=== PATIENT | male | born 1960 | race Caucasian/White ===

== ENCOUNTER → 2017-05-14 | Outpatient (REF) | payer OTHER ==
[2017-05-14 13:47] LABS: ALBUMIN/GLOBULIN RATIO 1.33 (1.00-1.93); ALKALINE PHOSPHATASE 86 U/L (45-117); ALT/SGPT 44 U/L (12-78); ANION GAP 8 MEQ/L (8-16); AST/SGOT 22 U/L (15-37); BILIRUBIN,TOTAL 0.5 MG/DL (0.2-1.0); BLOOD UREA NITROGEN 12 MG/DL (7-18); CALCIUM LEVEL 9.2 MG/DL (8.5-10.1); CARBON DIOXIDE LEVEL 26 MEQ/L (21-32); CHLORIDE LEVEL 109 MEQ/L (98-107); CHOLESTEROL LEVEL 187 MG/DL (<200); GLOMERULAR FILTRATION RATE > 60.0 (>56); GLUCOSE, FASTING 91 MG/DL (70-105); POTASSIUM SERUM 4.4 MEQ/L (3.5-5.1); SODIUM LEVEL 143 MEQ/L (136-145); TRIGLYCERIDES LEVEL 233 MG/DL (<150)
== END ==
LOC: M SFHCPLAZ 09:54
PROVIDERS: ATTEND Internal Medicine
DX: E78.00 Pure hypercholesterolemia, unspecified (principal)

== ENCOUNTER → 2017-06-23 | Outpatient (CLI) | payer OTHER ==
--- NOTE | 2017-06-23 09:22 | REP ---
LOW DOSE LUNG SCREENING CT: A low dose CT screening exam of the lungs is obtained without IV contrast. There is an azygos lobe. There is minor scattered fibrotic changes in both lungs diffusely. No suspicious nodular opacities are seen. No consolidation or other confluent parenchymal opacities are seen. No gross mediastinal contour abnormality is seen. The heart does not appear to be enlarged. There is no evidence of pleural fluid. IMPRESSION: No suspicious nodules. Routine yearly screening followup is recommended. Signed by Mustapha Ervin MD 06/23/2017 09:42 A
== END ==
LOC: M RAD 08:38
PROVIDERS: ATTEND Internal Medicine
DX: F17.200 Nicotine dependence, unspecified, uncomplicated (principal)

== ENCOUNTER → 2018-03-22 | Outpatient (CLI) | payer OTHER | LOC: M SLEEP 19:24 | DX: G47.33 Obstructive sleep apnea (adult) (pediatric) (principal); G47.61 Periodic limb movement disorder | CPT/HCPCS: 95810 ==

== ENCOUNTER → 2018-04-28 | Outpatient (CLI) | payer OTHER | LOC: M SLEEP 19:32 | DX: G47.33 Obstructive sleep apnea (adult) (pediatric) (principal) | CPT/HCPCS: 95811 ==

== ENCOUNTER → 2018-05-23 | Outpatient (REF) | payer OTHER ==
[2018-05-23 12:52] LABS: ALBUMIN 3.9 GM/DL (3.2-5.2); ALKALINE PHOSPHATASE 82 U/L (45-117); ALT/SGPT 53 U/L (12-78); ANION GAP 7 MEQ/L (8-16); AST/SGOT 26 U/L (7-37); BILIRUBIN,TOTAL 0.4 MG/DL (0.2-1.0); BLOOD UREA NITROGEN 16 MG/DL (7-18); CALCIUM LEVEL 8.8 MG/DL (8.8-10.2); CARBON DIOXIDE LEVEL 26 MEQ/L (21-32); CHLORIDE LEVEL 108 MEQ/L (98-107); CHOLESTEROL LEVEL 208 MG/DL (<200); CHOLESTEROL RISK RATIO 6.117 (<5); CREATININE FOR GFR 0.93 MG/DL (0.70-1.30); GLOMERULAR FILTRATION RATE > 60.0 (>49); GLUCOSE, FASTING 98 MG/DL (70-100); HDL CHOLESTEROL 34 MG/DL (>40); HEMATOCRIT 44.8 % (42.0-52.0); HEMOGLOBIN 15.6 g/dl (13.5-17.5); LDL CHOLESTEROL 138.6 MG/DL (<100); MEAN CORPUSCULAR HEMOGLOBIN 31.4 pg (27.0-33.0); MEAN CORPUSCULAR HGB CONC 34.8 g/dl (32.0-36.5); MEAN CORPUSCULAR VOLUME 90.1 fl (80.0-96.0); NON-HDL-C 174 MG/DL; PLATELET COUNT, AUTOMATED 250 10^3/uL (150-450); POTASSIUM SERUM 4.4 MEQ/L (3.5-5.1); RED BLOOD COUNT 4.97 10^6/uL (4.30-6.10); RED CELL DISTRIBUTION WIDTH 12.7 % (11.5-14.5); SODIUM LEVEL 141 MEQ/L (136-145); TOTAL PROTEIN 6.9 GM/DL (6.4-8.2); TRIGLYCERIDES LEVEL 177 MG/DL (<150); WHITE BLOOD COUNT 7.5 10^3/uL (4.0-10.0)
[2018-05-23 13:16] LABS: HEPATITIS C VIRUS ABY INDEX 0.5 INDEX (<0.8)
== END ==
LOC: M SFHCPLAZ 08:03
DX: E78.00 Pure hypercholesterolemia, unspecified (principal); F17.200 Nicotine dependence, unspecified, uncomplicated
CPT/HCPCS: 80053

== ENCOUNTER → 2019-02-22 | Outpatient (CLI) | payer OTHER ==
--- NOTE | 2019-02-22 15:24 | REP ---
Clinical: Lung screening. History of the contained mass Comparison: 06/23/2017 Technique: Axial low-dose noncontrast images from the thoracic inlet to the upper abdomen using lung screening technique. Findings: The lung maciel are well-aerated. No consolidation, significant nodule or mass lesion is appreciated. No pleural effusion/reaction or pneumothorax. Tracheobronchial tree is patent. Mediastinum demonstrates mild atherosclerotic changes of the coronary arteries without cardiomegaly. Impression: Lung-RADS category I. No nodule or suspicious abnormality. Recommendations include annual low-dose reevaluation/follow-up. Electronically Signed by Sathya Robins MD 02/22/2019 03:16 P
== END ==
LOC: M RAD 07:37
PROVIDERS: ATTEND Internal Medicine
DX: F17.200 Nicotine dependence, unspecified, uncomplicated (principal)

== ENCOUNTER → 2019-05-26 | Outpatient (REF) | payer OTHER ==
[2019-05-26 10:13] LABS: HEMATOCRIT 44.5 % (42.0-52.0); HEMOGLOBIN 15.2 g/dl (13.5-17.5); MEAN CORPUSCULAR HEMOGLOBIN 31.7 pg (27.0-33.0); MEAN CORPUSCULAR HGB CONC 34.2 g/dl (32.0-36.5); MEAN CORPUSCULAR VOLUME 92.7 fl (80.0-96.0); PLATELET COUNT, AUTOMATED 244 10^3/uL (150-450); WHITE BLOOD COUNT 4.5 10^3/uL (4.0-10.0)
[2019-05-26 10:21] LABS: ALBUMIN 3.8 GM/DL (3.2-5.2); ALT/SGPT 46 U/L (12-78); BILIRUBIN,TOTAL 0.7 MG/DL (0.2-1.0); BLOOD UREA NITROGEN 20 MG/DL (7-18); CALCIUM LEVEL 9.3 MG/DL (8.8-10.2); CARBON DIOXIDE LEVEL 25 MEQ/L (21-32); CHLORIDE LEVEL 107 MEQ/L (98-107); CHOLESTEROL LEVEL 189 MG/DL (<200); CHOLESTEROL RISK RATIO 5.108 (<5); CREATININE FOR GFR 0.89 MG/DL (0.70-1.30); GLOMERULAR FILTRATION RATE > 60.0 (>49); GLUCOSE, FASTING 101 MG/DL (70-100); HDL CHOLESTEROL 37 MG/DL (>40); LDL CHOLESTEROL 133 MG/DL (<100); NON-HDL-C 152 MG/DL; POTASSIUM SERUM 4.2 MEQ/L (3.5-5.1); SODIUM LEVEL 139 MEQ/L (136-145); TOTAL PROTEIN 7.2 GM/DL (6.4-8.2); TRIGLYCERIDES LEVEL 97 MG/DL (<150)
== END ==
LOC: M SFHCPLAZ 08:08
PROVIDERS: ATTEND Internal Medicine
DX: Z00.00 Encounter for general adult medical examination without abnormal findings (principal); E78.00 Pure hypercholesterolemia, unspecified; G47.33 Obstructive sleep apnea (adult) (pediatric)

== ENCOUNTER → 2019-06-08 | Outpatient (CLI) | payer OTHER ==
--- NOTE | 2019-06-08 08:21 | REP ---
Clinical: Screening for abdominal aortic aneurysm. Technique: Real time cash scale ultrasound examination using curved array transducer. Findings: Abdominal aorta demonstrates mild atheromatous plaquing without evidence for aneurysm. No periaortic fluid collections are identified. Proximal aorta Poorly evaluated due to bowel gas. Mid aorta (renal artery level) 2.5 x 2.7 cm. Mid aorta 2.6 x 2.7 cm. Distal aorta 2.4 x 2.7 cm. Right common iliac artery 1.0 cm maximal diameter. Left common iliac artery 1.0 cm maximal diameter. Impression: Age related atheromatous changes without evidence for abdominal aortic aneurysm. Electronically Signed by Sathya Robins MD 06/08/2019 08:12 A
== END ==
LOC: M RAD 07:31
PROVIDERS: ATTEND Internal Medicine
DX: Z82.49 Family history of ischemic heart disease and other diseases of the circulatory system (principal)

== ENCOUNTER → 2019-08-14 | Outpatient (CLI) | payer OTHER ==
--- NOTE | 2019-08-14 15:08 | REP ---
Four views left hand: 08/14/2019. Indication: Left hand pain. Comparison: None. Findings: There is no acute fracture, subluxation or dislocation. Mild osteoarthritic changes of the PIP joints, particularly distally are noted. No erosive changes are present. No significant soft tissue abnormalities are detected. Impression: No acute osseous injury. No definite evidence of ischemic changes. Electronically Signed by Jack Henley DO 08/14/2019 02:59 P
== END ==
LOC: M RAD 14:23
PROVIDERS: ATTEND Family Medicine
DX: I99.8 Other disorder of circulatory system (principal)

== ENCOUNTER 2019-12-11 07:26 | Day surgery (SDC) | payer OTHER ==
[~2019-12-11] VITALS: Ht 182.9 cm; Wt 128.8 kg
[~2019-12-11 07:26] MED LIST: MAGN250T7 PO; MELO15TA28 PO; NS 1,000 ML IV ONE
[2019-12-11] MEDS ORDERED: LIDOCAINE 2% INJ 100 MG/5 ML SDV (FOR ANES.) As Ordered ONE (07:40)
[2019-12-11] MEDS ORDERED: propofoL 200 MG/20 ML VIAL As Ordered ONE ×2 (07:40→09:35)
--- NOTE | 2019-12-11 09:43 | ROOR ---
Patient Name: Yong Banda Procedure Date: 12/11/2019 9:19 AM Date of : 1960 Age: 59 Room: [facility] Gender: Male Note Status: Finalized Procedure: Colonoscopy Indications: High risk colon cancer surveillance: Personal history of colonic polyps, Last colonoscopy: September 2016 Providers: Kilo LUND MD Referring MD: Justino Meza MD Requesting Provider: Medicines: Monitored Anesthesia Care Complications: No immediate complications. Procedure: Pre-Anesthesia Assessment: - The heart rate, respiratory rate, oxygen saturations, blood pressure, adequacy of pulmonary ventilation, and response to care were monitored throughout the procedure. The Colonoscope was introduced through the anus and advanced to the cecum, identified by appendiceal orifice and ileocecal valve. The colonoscopy was performed without difficulty. The patient tolerated the procedure well. The quality of the bowel preparation was good. Findings: The perianal and digital rectal examinations were normal. A 5 mm polyp was found in the splenic flexure. The polyp was sessile. The polyp was removed with a cold snare. Resection and retrieval were complete. Multiple medium-mouthed diverticula were found in the sigmoid colon. Arlene-diverticular erythema was seen. This was biopsied with a cold forceps for histology. Small Internal Hemorrhoids. Impression: - One 5 mm polyp at the splenic flexure, removed with a cold snare. Resected and retrieved. - Diverticulosis in the sigmoid colon. Arlene-diverticular erythema/irregular mucosal fold around one diverticulum was seen. Biopsied. - Small Internal Hemorrhoids. - The examination was otherwise normal on direct and retroflexion views. Recommendation: - Repeat colonoscopy in 5 years for surveillance. Kilo Lund MD Kilo LUND MD 12/11/2019 9:42:38 AM Electronically signed by Kilo LUND MD Number of Addenda: 0 Note Initiated On: 12/11/2019 9:19 AM Estimated Blood Loss: Estimated blood loss: none.
[2019-12-11 10:00] VITALS: BP 142/89
== END 2019-12-11 10:05 | disposition home or self-care (01) ==
LOC: M OPP 07:26
PROVIDERS: ATTEND Internal Medicine Gastroenterology
DX: Z86.010 Personal history of colon polyps (principal); D12.3 Benign neoplasm of transverse colon; K57.30 Diverticulosis of large intestine without perforation or abscess without bleeding; K64.8 Other hemorrhoids; G47.33 Obstructive sleep apnea (adult) (pediatric); I73.00 Raynaud's syndrome without gangrene; M19.90 Unspecified osteoarthritis, unspecified site; F17.210 Nicotine dependence, cigarettes, uncomplicated; Z79.899 Other long term (current) drug therapy

== ENCOUNTER → 2020-06-03 | Outpatient (CLI) | payer OTHER ==
[~2020-06-03] MED LIST changes: -NS 1,000 ML IV ONE
[2020-06-03 12:50] LABS: HEMATOCRIT 44.5 % (42.0-52.0); HEMOGLOBIN 15.1 g/dl (13.5-17.5); MEAN CORPUSCULAR HEMOGLOBIN 31.3 pg (27.0-33.0); MEAN CORPUSCULAR HGB CONC 33.9 g/dl (32.0-36.5); MEAN CORPUSCULAR VOLUME 92.1 fl (80.0-96.0); PLATELET COUNT, AUTOMATED 295 10^3/uL (150-450); RED BLOOD COUNT 4.83 10^6/uL (4.30-6.10); WHITE BLOOD COUNT 6.1 10^3/uL (4.0-10.0)
[2020-06-03 13:26] LABS: ALBUMIN 3.6 GM/DL (3.2-5.2); ALT/SGPT 44 U/L (12-78); BILIRUBIN,TOTAL 0.3 MG/DL (0.2-1.0); BLOOD UREA NITROGEN 13 MG/DL (7-18); CALCIUM LEVEL 8.9 MG/DL (8.8-10.2); CARBON DIOXIDE LEVEL 29 MEQ/L (21-32); CHLORIDE LEVEL 107 MEQ/L (98-107); CHOLESTEROL LEVEL 172 MG/DL (<200); CHOLESTEROL RISK RATIO 5.212 (<5); CREATININE FOR GFR 0.92 MG/DL (0.70-1.30); GLOMERULAR FILTRATION RATE > 60.0 (>49); GLUCOSE, FASTING 97 MG/DL (70-100); HDL CHOLESTEROL 33 MG/DL (>40); LDL CHOLESTEROL 118 MG/DL (<100); NON-HDL-C 139 MG/DL; POTASSIUM SERUM 4.8 MEQ/L (3.5-5.1); SODIUM LEVEL 141 MEQ/L (136-145); TOTAL PROTEIN 6.9 GM/DL (6.4-8.2); TRIGLYCERIDES LEVEL 103 MG/DL (<150)
[2020-06-03 13:27] LABS: VITAMIN B12 LEVEL 700 PG/ML (247-911)
== END ==
LOC: M PLALAB 10:10
PROVIDERS: ATTEND Internal Medicine
DX: Z00.00 Encounter for general adult medical examination without abnormal findings (principal); E78.00 Pure hypercholesterolemia, unspecified; Z12.5 Encounter for screening for malignant neoplasm of prostate; Z86.010 Personal history of colon polyps; G47.33 Obstructive sleep apnea (adult) (pediatric); R53.83 Other fatigue
CPT/HCPCS: 36415; 80053; 80061; 82607; 84443; 85027; G0103

== ENCOUNTER → 2020-08-23 | Outpatient (CLI) | payer OTHER ==
--- NOTE | 2020-08-23 19:58 | REP ---
INDICATION: SMOKER COMPARISON: None. TECHNIQUE: Axial noncontrast images from the thoracic inlet to the upper abdomen using low-dose lung screening technique (LDCT). FINDINGS: Bilateral lung maciel demonstrate scattered age-related changes. No suspicious nodule or mass lesion. No consolidation. No effusion. No pneumothorax. Tracheobronchial tree is patent. Atherosclerotic changes to the thoracic aorta and coronary arteries noted. There is suggestions for a lipoma in the left axillary region. IMPRESSION: 1. Lung rads category 1. No suspicious nodule or mass lesion. Management recommendations include annual low-dose surveillance. 2. Suspected lipoma within the left axillary region. <Electronically signed by Sathya Robins > 08/23/201954
== END ==
LOC: M RAD 10:49
PROVIDERS: ATTEND Internal Medicine
DX: F17.200 Nicotine dependence, unspecified, uncomplicated (principal); R91.8 Other nonspecific abnormal finding of lung field

== ENCOUNTER → 2021-06-06 | Outpatient (CLI) | payer OTHER ==
[2021-06-06 13:11] LABS: BASO % 0.1 % (0.0-1.0); EOS % 0.1 % (0.0-3.0); HEMATOCRIT 44.4 % (42.0-52.0); LYMPH % 7.7 % (24.0-44.0); MEAN CORPUSCULAR HEMOGLOBIN 30.7 pg (27.0-33.0); MEAN CORPUSCULAR HGB CONC 33.8 g/dl (32.0-36.5); MEAN CORPUSCULAR VOLUME 90.8 fl (80.0-96.0); MONO # 0.6 10^3/uL (0.0-0.8); MONO % 4.6 % (2.0-8.0); NEUTROPHILS # 11.4 10^3/uL (1.5-8.5); NEUTROPHILS % 86.6 % (36.0-66.0); PLATELET COUNT, AUTOMATED 324 10^3/uL (150-450); RED BLOOD COUNT 4.89 10^6/uL (4.30-6.10); WHITE BLOOD COUNT 13.2 10^3/uL (4.0-10.0)
[2021-06-06 13:33] LABS: ALBUMIN 3.8 GM/DL (3.2-5.2); ALT/SGPT 44 U/L (12-78); BILIRUBIN,TOTAL 0.3 MG/DL (0.2-1.0); BLOOD UREA NITROGEN 15 MG/DL (7-18); CALCIUM LEVEL 9.6 MG/DL (8.8-10.2); CARBON DIOXIDE LEVEL 26 MEQ/L (21-32); CHLORIDE LEVEL 108 MEQ/L (98-107); CHOLESTEROL LEVEL 211 MG/DL (<200); CHOLESTEROL RISK RATIO 5.146 (<5); CREATININE FOR GFR 0.83 MG/DL (0.70-1.30); GLOMERULAR FILTRATION RATE > 60.0 (>49); GLUCOSE, FASTING 128 MG/DL (70-100); HDL CHOLESTEROL 41 MG/DL (>40); LDL CHOLESTEROL 154 MG/DL (<100); NON-HDL-C 170 MG/DL; POTASSIUM SERUM 4.6 MEQ/L (3.5-5.1); SODIUM LEVEL 141 MEQ/L (136-145); TOTAL PROTEIN 7.2 GM/DL (6.4-8.2); TRIGLYCERIDES LEVEL 79 MG/DL (<150)
== END ==
LOC: M PLALAB 08:36
PROVIDERS: ATTEND Internal Medicine
DX: Z00.00 Encounter for general adult medical examination without abnormal findings (principal); E78.00 Pure hypercholesterolemia, unspecified; G47.33 Obstructive sleep apnea (adult) (pediatric); Z12.5 Encounter for screening for malignant neoplasm of prostate
CPT/HCPCS: 36415; 80053; 80061; 85025; G0103

== ENCOUNTER → 2021-12-08 | Outpatient (CLI) | payer OTHER ==
[2021-12-08 10:22] LABS: HEMOGLOBIN A1c 5.9 %
[2021-12-08 10:34] LABS: ALT/SGPT 50 U/L (12-78); BILIRUBIN,TOTAL 0.5 MG/DL (0.2-1.0); BLOOD UREA NITROGEN 19 MG/DL (7-18); CALCIUM LEVEL 9.4 MG/DL (8.8-10.2); CARBON DIOXIDE LEVEL 28 MEQ/L (21-32); CHLORIDE LEVEL 109 MEQ/L (98-107); CHOLESTEROL LEVEL 199 MG/DL (<200); CHOLESTEROL RISK RATIO 5.236 (<5); CREATININE FOR GFR 0.82 MG/DL (0.70-1.30); GLOMERULAR FILTRATION RATE > 60.0 (>49); GLUCOSE, FASTING 108 MG/DL (70-100); HDL CHOLESTEROL 38 MG/DL (>40); LDL CHOLESTEROL 132 MG/DL (<100); NON-HDL-C 161 MG/DL; POTASSIUM SERUM 4.4 MEQ/L (3.5-5.1); SODIUM LEVEL 140 MEQ/L (136-145); TOTAL PROTEIN 7.2 GM/DL (6.4-8.2); TRIGLYCERIDES LEVEL 146 MG/DL (<150)
[2021-12-08 11:47] LABS: CREATININE, URINE 91.2 MG/DL; MALB URINE SIEMENS < 5.0 MG/L; MAU/CREAT RATIO 5.4 MCG/MG (0.0-30.0)
== END ==
LOC: M PLALAB 08:11
PROVIDERS: ATTEND Internal Medicine
DX: E78.00 Pure hypercholesterolemia, unspecified (principal)

== ENCOUNTER → 2022-04-07 | Outpatient (CLI) | payer OTHER | LOC: M RAD 08:59 | PROVIDERS: ATTEND Internal Medicine | DX: R91.1 Solitary pulmonary nodule (principal) ==

== ENCOUNTER → 2022-06-15 | Outpatient (CLI) | payer OTHER ==
[2022-06-15 10:29] LABS: BASO # 0.1 10^3/uL (0.0-0.2); BASO % 0.6 % (0.0-1.0); EOS # 0.2 10^3/uL (0.0-0.5); EOS % 2.5 % (0.0-3.0); HEMATOCRIT 46.7 % (42.0-52.0); HEMOGLOBIN 15.9 g/dl (13.5-17.5); LYMPH # 1.2 10^3/uL (1.5-5.0); LYMPH % 13.9 % (24.0-44.0); MEAN CORPUSCULAR HEMOGLOBIN 30.8 pg (27.0-33.0); MEAN CORPUSCULAR VOLUME 90.5 fl (80.0-96.0); MONO # 0.5 10^3/uL (0.0-0.8); MONO % 5.8 % (2.0-8.0); NEUTROPHILS # 6.5 10^3/uL (1.5-8.5); NEUTROPHILS % 76.8 % (36.0-66.0); PLATELET COUNT, AUTOMATED 274 10^3/uL (150-450); RED BLOOD COUNT 5.16 10^6/uL (4.30-6.10); WHITE BLOOD COUNT 8.4 10^3/uL (4.0-10.0)
[2022-06-15 11:17] LABS: ALT/SGPT 43 U/L (12-78); BILIRUBIN,TOTAL 0.5 MG/DL (0.2-1.0); BLOOD UREA NITROGEN 18 MG/DL (7-18); CALCIUM LEVEL 9.7 MG/DL (8.8-10.2); CARBON DIOXIDE LEVEL 24 MEQ/L (21-32); CHLORIDE LEVEL 108 MEQ/L (98-107); CHOLESTEROL LEVEL 203 MG/DL (<200); CHOLESTEROL RISK RATIO 5.205 (<5); CREATININE FOR GFR 0.88 MG/DL (0.70-1.30); GLOMERULAR FILTRATION RATE > 60.0 (>49); GLUCOSE, FASTING 108 MG/DL (70-100); HDL CHOLESTEROL 39 MG/DL (>40); LDL CHOLESTEROL 135 MG/DL (<100); NON-HDL-C 164 MG/DL; POTASSIUM SERUM 4.4 MEQ/L (3.5-5.1); SODIUM LEVEL 137 MEQ/L (136-145); TRIGLYCERIDES LEVEL 147 MG/DL (<150)
[2022-06-15 15:34] LABS: HEMOGLOBIN A1c 5.7 %
== END ==
LOC: M PLALAB 08:07
PROVIDERS: ATTEND Internal Medicine
DX: E78.00 Pure hypercholesterolemia, unspecified (principal)

== ENCOUNTER → 2022-10-08 | Outpatient (CLI) | payer OTHER | LOC: M PLAIMG 09:50 | PROVIDERS: ATTEND Nurse Practitioner Adult Health | DX: R91.8 Other nonspecific abnormal finding of lung field (principal) ==

== ENCOUNTER → 2022-12-21 | Outpatient (CLI) | payer OTHER ==
[2022-12-21 13:23] LABS: HEMOGLOBIN A1c 5.7 % (4.0-6.0)
[2022-12-21 13:31] LABS: ALBUMIN 4.2 G/DL (3.2-5.2); ALKALINE PHOSPHATASE 102 U/L (46-116); ALT/SGPT 53 U/L (7.0-40); AST/SGOT 28 U/L (<34); BILIRUBIN,TOTAL 0.7 MG/DL (0.3-1.2); BLOOD UREA NITROGEN 18 MG/DL (9-23); CALCIUM LEVEL 8.7 MG/DL (8.3-10.6); CARBON DIOXIDE LEVEL 27 MMOL/L (20-31); CHLORIDE LEVEL 105 MMOL/L (98-107); CHOLESTEROL LEVEL 152 MG/DL (<200); CHOLESTEROL RISK RATIO 3.41 (<5); CREATININE FOR GFR 0.86 MG/DL (0.70-1.30); GLOMERULAR FILTRATION RATE > 60.0 (>49); GLUCOSE, FASTING 122 MG/DL (74-106); HDL CHOLESTEROL 44.5 MG/DL (>40); LDL CHOLESTEROL 84.1 MG/DL (<100); NON-HDL-C 107.5 MG/DL; POTASSIUM SERUM 4.6 MMOL/L (3.5-5.1); SODIUM LEVEL 140 MMOL/L (136-145); TOTAL PROTEIN 7.2 G/DL (5.7-8.2); TRIGLYCERIDES LEVEL 117 MG/DL (<150)
== END ==
LOC: M WUC 09:21
PROVIDERS: ATTEND Nurse Practitioner Adult Health
DX: E78.00 Pure hypercholesterolemia, unspecified (principal); R73.09 Other abnormal glucose

== ENCOUNTER → 2023-06-21 | Outpatient (CLI) | payer MEDICARE, OTHER ==
[2023-06-21 13:32] LABS: HEMATOCRIT 43.3 % (42.0-52.0); HEMOGLOBIN 14.8 g/dl (13.5-17.5); MEAN CORPUSCULAR HEMOGLOBIN 30.9 pg (27.0-33.0); MEAN CORPUSCULAR HGB CONC 34.2 g/dl (32.0-36.5); MEAN CORPUSCULAR VOLUME 90.4 fl (80.0-96.0); PLATELET COUNT, AUTOMATED 259 10^3/uL (150-450); RED BLOOD COUNT 4.79 10^6/uL (4.30-6.10); WHITE BLOOD COUNT 5.8 10^3/uL (4.0-10.0)
[2023-06-21 13:37] LABS: HEMOGLOBIN A1c 5.2 % (4.0-6.0)
[2023-06-21 13:50] LABS: ALBUMIN 4.2 G/DL (3.2-5.2); ALKALINE PHOSPHATASE 111 U/L (46-116); ALT/SGPT 46 U/L (7.0-40); AST/SGOT 28 U/L (<34); BILIRUBIN,TOTAL 0.9 MG/DL (0.3-1.2); BLOOD UREA NITROGEN 15 MG/DL (9-23); CARBON DIOXIDE LEVEL 25 MMOL/L (20-31); CHLORIDE LEVEL 107 MMOL/L (98-107); CHOLESTEROL LEVEL 131 MG/DL (<200); CHOLESTEROL RISK RATIO 3.42 (<5); CREATININE FOR GFR 0.81 MG/DL (0.70-1.30); GLOMERULAR FILTRATION RATE > 60.0 (>49); GLUCOSE, FASTING 111 MG/DL (74-106); HDL CHOLESTEROL 38.2 MG/DL (>40); LDL CHOLESTEROL 75.8 MG/DL (<100); NON-HDL-C 92.8 MG/DL; POTASSIUM SERUM 4.1 MMOL/L (3.5-5.1); SODIUM LEVEL 141 MMOL/L (136-145); TOTAL PROTEIN 6.9 G/DL (5.7-8.2); TRIGLYCERIDES LEVEL 85 MG/DL (<150)
== END ==
LOC: M WUC 09:43
PROVIDERS: ATTEND Nurse Practitioner Adult Health
DX: G47.33 Obstructive sleep apnea (adult) (pediatric) (principal); R73.09 Other abnormal glucose; E78.00 Pure hypercholesterolemia, unspecified; Z12.5 Encounter for screening for malignant neoplasm of prostate
CPT/HCPCS: 36415; 80053; 80061; 83036; 84443; 85027; G0103

== ENCOUNTER → 2023-07-19 | Outpatient (CLI) | payer MEDICARE, OTHER | LOC: M RAD 06:23 | PROVIDERS: ATTEND Nurse Practitioner Adult Health | DX: Z00.00 Encounter for general adult medical examination without abnormal findings (principal); Z82.49 Family history of ischemic heart disease and other diseases of the circulatory system; M17.12 Unilateral primary osteoarthritis, left knee; E78.00 Pure hypercholesterolemia, unspecified; R91.1 Solitary pulmonary nodule; R73.09 Other abnormal glucose; Z23 Encounter for immunization; Z86.010 Personal history of colon polyps; G47.33 Obstructive sleep apnea (adult) (pediatric) ==

== ENCOUNTER → 2023-11-22 | Outpatient (CLI) | payer MEDICARE, OTHER | LOC: M RAD 06:06 | PROVIDERS: ATTEND Nurse Practitioner Adult Health | DX: Z87.891 Personal history of nicotine dependence (principal) ==

== ENCOUNTER → 2024-06-22 | Outpatient (CLI) | payer MEDICARE, OTHER ==
[2024-06-22 13:46] LABS: HEMATOCRIT 44.1 % (42.0-52.0); HEMOGLOBIN 15.2 g/dl (13.5-17.5); MEAN CORPUSCULAR HEMOGLOBIN 31.7 pg (27.0-33.0); MEAN CORPUSCULAR HGB CONC 34.5 g/dl (32.0-36.5); MEAN CORPUSCULAR VOLUME 92.1 fl (80.0-96.0); PLATELET COUNT, AUTOMATED 287 10^3/uL (150-450); RED BLOOD COUNT 4.79 10^6/uL (4.30-6.10); WHITE BLOOD COUNT 6.1 10^3/uL (4.0-10.0)
[2024-06-22 14:23] LABS: ALBUMIN 4.2 G/DL (3.2-5.2); ALKALINE PHOSPHATASE 96 U/L (46-116); ALT/SGPT 40 U/L (7.0-40); AST/SGOT 19 U/L (<34); BILIRUBIN,TOTAL 0.7 MG/DL (0.3-1.2); BLOOD UREA NITROGEN 15 MG/DL (9-23); CALCIUM LEVEL 9.7 MG/DL (8.3-10.6); CARBON DIOXIDE LEVEL 27 MMOL/L (20-31); CHLORIDE LEVEL 109 MMOL/L (98-107); CHOLESTEROL LEVEL 164 MG/DL (<200); CHOLESTEROL RISK RATIO 4.22 (<5); CREATININE FOR GFR 0.86 MG/DL (0.70-1.30); GLOMERULAR FILTRATION RATE > 60.0 (>49); GLUCOSE, FASTING 113 MG/DL (74-106); HDL CHOLESTEROL 38.8 MG/DL (>40); LDL CHOLESTEROL 95.8 MG/DL (<100); NON-HDL-C 125.2 MG/DL; POTASSIUM SERUM 4.1 MMOL/L (3.5-5.1); SODIUM LEVEL 140 MMOL/L (136-145); TOTAL PROTEIN 7.1 G/DL (5.7-8.2); TRIGLYCERIDES LEVEL 147 MG/DL (<150)
[2024-06-22 14:24] LABS: THYROID STIMULATING HORMONE 1.959 uIU/ML (0.55-4.78)
== END ==
LOC: M WUC 09:46
PROVIDERS: ATTEND Nurse Practitioner Adult Health
DX: G47.33 Obstructive sleep apnea (adult) (pediatric) (principal); R73.09 Other abnormal glucose; E78.2 Mixed hyperlipidemia

== ENCOUNTER → 2025-01-01 | Outpatient (CLI) | payer MEDICARE, OTHER | LOC: M RAD 14:53 | PROVIDERS: ATTEND Nurse Practitioner Adult Health | DX: Z87.891 Personal history of nicotine dependence (principal) ==

== ENCOUNTER → 2025-07-30 | Outpatient (CLI) | payer MEDICARE, OTHER ==
[~2025-07-30] MED LIST changes: +ATOR1TAB19 PO
[2025-07-30 12:11] LABS: PLATELET COUNT, AUTOMATED 269 10^3/uL (150-450)
[2025-07-30 12:15] LABS: ALT/SGPT 31 U/L (7.0-40); AST/SGOT 21 U/L (<34); CALCIUM LEVEL 9.4 MG/DL (8.3-10.6); CARBON DIOXIDE LEVEL 28 MMOL/L (20-31); CHLORIDE LEVEL 108 MMOL/L (98-107); CHOLESTEROL LEVEL 148 MG/DL (<200); CHOLESTEROL RISK RATIO 3.28 (<5); CREATININE FOR GFR 0.84 MG/DL (0.70-1.30); GLOMERULAR FILTRATION RATE > 90.0 (>49); LDL CHOLESTEROL 81.8 MG/DL (<100); NON-HDL-C 103.0 MG/DL; POTASSIUM SERUM 4.9 MMOL/L (3.5-5.1); PSA SCREENING 1.49 NG/ML (< 4.00); SODIUM LEVEL 144 MMOL/L (136-145); TRIGLYCERIDES LEVEL 106 MG/DL (<150)
[2025-07-30 12:21] LABS: ESTIMATED AVERAGE GLUCOSE 117.0 MG/DL (60-110)
== END ==
LOC: M WUC 09:05
PROVIDERS: ATTEND Nurse Practitioner Adult Health
DX: R73.09 Other abnormal glucose (principal); G47.33 Obstructive sleep apnea (adult) (pediatric); Z12.5 Encounter for screening for malignant neoplasm of prostate; E78.2 Mixed hyperlipidemia
CPT/HCPCS: 36415; 80053; 80061; 83036; 85027; G0103

== ENCOUNTER → 2025-10-03 | Outpatient (CLI) | payer MEDICARE, OTHER | LOC: M RAD 07:16 | PROVIDERS: ATTEND Nurse Practitioner Adult Health | DX: I71.40 Abdominal aortic aneurysm, without rupture, unspecified (principal); Z82.49 Family history of ischemic heart disease and other diseases of the circulatory system ==